=== PATIENT | male | born 1980 | race Caucasian/White ===

== ENCOUNTER → 2020-09-29 | Outpatient (CLI) | payer BC, OTHER ==
[~2020-09-29] MED LIST: BACTROBAN OINT22 GM EXT; IBUPROFEN600 MG PO; LIPITOR TAB 1010 MG PO; LISINOPRIL10 MG PO; NEXIUM40 MG PO; NORCO 5-325 TA1 EACH PO; OMEPRAZOLE20 MG PO; RYTHMOL SR325 MG PO; TIADYLT ER120 MG PO; VITAMIN D PO
== END ==
LOC: HEART 5 11:18 → ECHO 09-30 13:30 → NM 09-30 15:00
DX: R07.9 Chest pain, unspecified (principal)
CPT/HCPCS: 93306

== ENCOUNTER 2020-11-07 03:49 | Emergency (ER) | payer BC, OTHER ==
[~2020-11-07 03:49] MED LIST changes: -LIPITOR TAB 1010 MG PO; -LISINOPRIL10 MG PO; -OMEPRAZOLE20 MG PO; -RYTHMOL SR325 MG PO; -TIADYLT ER120 MG PO; -VITAMIN D PO
[2020-11-07 04:47] LABS: HEMOGLOBIN 15.3 gm/dl (14.0-17.5); RED BLOOD COUNT 4.59 M/UL (4.20-5.50); WHITE BLOOD COUNT 5.9 K/UL (4.5-11.0)
[2020-11-07 05:01] LABS: BUN/CREATININE RATIO 15 (0-10)
[2020-12-28] MEDS ORDERED: LIPITOR TAB 1010 MG PO (10:51)
[2020-12-28] MEDS ORDERED: LISINOPRIL10 MG PO (10:52)
[2020-12-28] MEDS ORDERED: TIADYLT ER120 MG PO (10:53)
[2020-12-28] MEDS ORDERED: OMEPRAZOLE20 MG PO (10:53)
[2020-12-28] MEDS ORDERED: VITAMIN D PO (10:56)
[2020-12-28] MEDS ORDERED: RYTHMOL SR325 MG PO (15:01)
== END 2020-11-07 06:02 | disposition home or self-care (01) ==
LOC: ER1 03:49
PROVIDERS: Emergency Medicine
DX: I47.1 Supraventricular tachycardia (principal); I10 Essential (primary) hypertension; E78.5 Hyperlipidemia, unspecified; Z90.89 Acquired absence of other organs
CPT/HCPCS: 71045; 80053; 82550; 82553; 83874; 83880; 84439; 84443; 84484; 85025; 96374; 96375; 99284; J2060; J2405

== ENCOUNTER → 2020-12-24 | Outpatient (CLI) | payer BC, OTHER ==
[~2020-12-24] MED LIST changes: +LIPITOR TAB 1010 MG PO; +LISINOPRIL10 MG PO; +OMEPRAZOLE20 MG PO; +RYTHMOL SR325 MG PO; +TIADYLT ER120 MG PO; +VITAMIN D PO
[2020-12-24 11:00] LABS: HEMOGLOBIN 15.2 gm/dl (14.0-17.5); RED BLOOD COUNT 4.62 M/UL (4.20-5.50)
[2020-12-24 11:13] LABS: BUN/CREATININE RATIO 18 (0-10)
== END ==
LOC: LAB 10:10
PROVIDERS: Internal Medicine Cardiovascular Disease
DX: I47.1 Supraventricular tachycardia (principal); R00.2 Palpitations
CPT/HCPCS: 36415; 71046; 80048; 85025

== ENCOUNTER → 2020-12-28 | Outpatient (CLI) | payer BC, OTHER | LOC: CATH 12-24 09:55 | DX: I47.1 Supraventricular tachycardia (principal); I10 Essential (primary) hypertension; E78.5 Hyperlipidemia, unspecified; K21.9 Gastro-esophageal reflux disease without esophagitis; Z82.49 Family history of ischemic heart disease and other diseases of the circulatory system | CPT/HCPCS: 93620; 93621; 93623; 99152; 99153; C1730; C1766; J1644; J2250; J3010; J7040; J7050 ==

== ENCOUNTER → 2021-03-09 | Outpatient (CLI) | payer BC, OTHER | LOC: KOH-I 10:15 | DX: M23.92 Unspecified internal derangement of left knee (principal); M25.462 Effusion, left knee; S76.112A Strain of left quadriceps muscle, fascia and tendon, initial encounter | CPT/HCPCS: 73721 ==